=== PATIENT | male | born 1990 | race Two or more races ===

== ENCOUNTER 2021-06-20 08:00 | Outpatient (CLI) | payer OTHER ==
--- NOTE | 2021-06-21 15:32 | XRAY Report ---
PROCEDURE: Finger(s) LT INDICATIONS: CRUSHING INJURY OF L RING FINGER TECHNIQUE: AP hand, 3 views of the 4 finger(s) acquired. COMPARISON: None FINDINGS: Bones: No fractures or dislocations. No suspicious bony lesions. Soft tissues: No suspicious soft tissue calcifications. IMPRESSION: No visualized acute fracture or dislocation. However, occult injury cannot be excluded. Recommend babita rt interval imaging follow-up in 7-10 days as clinically indicated for additional evaluation. Reviewed by: Bonnie Frost MD on 06/21/2021 3:31 PM PDT Approved by: Bonnie Frost MD on 06/21/2021 3:31 PM PDT Station ID: [id number]
== END 2021-06-20 23:59 | disposition home or self-care (01) ==
LOC: DI.N 08:00
PROVIDERS: ATTEND Nurse Practitioner
DX: S67.195A Crushing injury of left ring finger, initial encounter (principal)